=== PATIENT | male | born 1985 | race African-American/Black ===

== ENCOUNTER 2017-11-13 09:59 | Emergency (ER) | payer OTHER ==
[~2017-11-13] VITALS: Ht 190.5 cm; Wt 108.9 kg
[~2017-11-13 09:59] MED LIST: ACTICIN 5% CREA60 G1 TOP; NO HOME MEDS
[2017-11-13 10:18] LABS: URINE BILIRUBIN NEGATIVE (Negative); URINE BLOOD TRACE (Negative); URINE CLARITY CLEAR; URINE COLOR YELLOW; URINE GLUCOSE-RANDOM* NEGATIVE (Negative); URINE KETONES NEGATIVE (Negative); URINE NITRITE-REFLEX NEGATIVE (Negative); URINE PROTEIN (DIPSTICK) NEGATIVE (Negative); URINE UROBILINOGEN 0.2 E.U./dl (0.2-1.0)
[2017-11-13 10:20] LABS: URINE LEUKOCYTES-REFLEX 3+ (Negative)
[2017-11-13 10:36] LABS: BACTERIA-REFLEX None Seen /HPF (None Seen); CASTS None Seen /LPF (None Seen); CRYSTALS None Seen /LPF (None Seen); SQUAMOUS None Seen /LPF (0-3); URINE RBC 0-2 Rare /HPF (0-2); URINE WBC-REFLEX >25 Many /HPF (0-5)
[2017-11-13 11:31] VITALS: BP 112/70
== END 2017-11-13 11:32 | disposition home or self-care (01) ==
LOC: ER 09:59
PROVIDERS: Physician Assistant
DX: Z20.2 Contact with and (suspected) exposure to infections with a predominantly sexual mode of transmission (principal); N34.2 Other urethritis; E05.90 Thyrotoxicosis, unspecified without thyrotoxic crisis or storm; F17.210 Nicotine dependence, cigarettes, uncomplicated